=== PATIENT | female | born 1995 | race Caucasian/White ===

== ENCOUNTER 2016-11-27 12:33 | Emergency (ER) | payer MEDICAID, OTHER ==
[~2016-11-27] VITALS: Ht 170.2 cm; Wt 72.7 kg
[~2016-11-27 12:33] MED LIST: FLUO-1 OR; KETO10 PO; VENTAER INH; Z.0.BCPILL PO; ZOFR4TAB3 SL
[2016-11-27 12:35] VITALS: BP 122/80; PULSE 68; RESP 16; TEMP 98.6; O2SAT 99
--- NOTE | 2016-11-27 13:24 | PD ---
Physical Exam Time Seen by Provider: 13:21 Narrative 21 y/o estimates 6 weeks based on lmp 10/12. Here with vaginal bleeding intermittently which started 4 days ago. Endorses occasional "twinges of pain." Denies nausea, vomiting, fevers, chills, dysuria. VSS Seen at triage desk. Awaiting bed placement. Data Data Last Documented VS Vital Signs Date Time Temp Pulse Resp B/P Pulse Ox O2 Delivery O2 Flow Rate FiO2 11/27/16 12:35 98.6 68 16 122/80 99 Room Air [facility] Medical Record Reviewed: Yes Supervised Visit with DAWOOD: No Sharath Girard November 27, 2016 13:24
--- NOTE | 2016-11-27 14:14 | PD ---
HPI Chief Complaint: Traveling Crane Operator Problem/Complaint Time Seen by Provider: 14:07 Travel History International Travel<30 days: No Contact w/Intl Traveler<30days: No Traveled to known affect area: No History of Present Illness HPI The patient is a whose last menstrual cycle was October 12, 2016 who thinks she is approximate 6 weeks . The patient's first was a full- term vaginal delivery without complications. The patient thinks she is approximate 6 weeks , complains of 4 days of intermittent lower abdominal pain/cramping and vaginal bleeding. The patient describes the vaginal bleeding as bright, light, intermittent, and assisted with mild cramping and suprapubic pain. The patient denies any nausea, vomiting, or upper abdominal pain. She denies any associated dysuria or vaginal discharge. The patient states her blood type is O+. PFSH Past Medical History Asthma: Yes Depression: Yes Diminished Hearing: No Psychiatric: Yes (EMOTIONAL ISSUES) ?: LMP: 10/12/2016 Social History Alcohol Use: No Tobacco Use: No Substance Use: No Allergies-Medications (Allergen,Severity, Reaction): Coded Allergies: Onion (Verified Allergy, Intermediate, HIVES, 11/27/16) Reported Meds & Prescriptions Reported Meds & Active Scripts Active Ibuprofen 600 Mg Tab 600 Mg PO Q6H PRN Macrobid (Nitrofurantoin Monoh/Nitrofur Macro) 100 Mg Cap 100 Mg PO BID 10 Days Toradol (Ketorolac Tromethamine) 10 Mg Tab 10 Mg PO Q6-8HPRN 2 Days Zofran ODT (Ondansetron HCl) 4 Mg Tab 4 Mg SL Q6HPRN 2 Days FOR NAUSEA/VOMITING Ventolin Hfa (Albuterol Sulfate) 18 Gm Aero 2 Puff INH Q4HPRN * SHAKE WELL BEFORE USE * Reported Control Pills (Miscellaneous Medication) Tab 1 Tab PO DAILY Prozac (Fluoxetine HCl) 10 Mg Cap 10 Mg OR DAILY Review of Systems Except as stated in HPI: all other systems reviewed are Neg General / Constitutional: No: Fever HENT: No: Lightheadedness Cardiovascular: No: Chest Pain or Discomfort Respiratory: No: Shortness of Breath Gastrointestinal: No: Nausea, Vomiting, Abdominal Pain Genitourinary: Positive: Pelvic Pain, Vaginal Bleeding, No: Dysuria, Discharge Skin: No Rash Physical Exam Narrative GENERAL: Awake, alert, pleasant 21-year-old female who appears her stated age and is in no acute respiratory distress. SKIN: Focused skin assessment warm/dry. HEAD: Atraumatic. Normocephalic. EYES: No injection or drainage. ENT: No nasal bleeding or discharge. Mucous membranes pink and moist. NECK: Trachea midline. No JVD. CARDIOVASCULAR: Regular rate and rhythm. No murmur appreciated. RESPIRATORY: No accessory muscle use. Clear to auscultation. Breath sounds equal bilaterally. GASTROINTESTINAL: Abdomen soft, non-tender, nondistended. No rebound tenderness. Back: No CVA tenderness. Pelvic: The exam was performed in the presence of a female nurse. MUSCULOSKELETAL: No obvious deformities. No clubbing. No cyanosis. No edema. NEUROLOGICAL: Awake and alert. No obvious cranial nerve deficits. Motor grossly within normal limits. Normal speech. PSYCHIATRIC: Appropriate mood and affect; insight and judgment normal. Data Data Last Documented VS Vital Signs Date Time Temp Pulse Resp B/P Pulse Ox O2 Delivery O2 Flow Rate FiO2 11/27/16 12:35 98.6 68 16 122/80 99 Room Air Orders Beta Hcg (Quant/Titer) (11/27/16 14:07) Complete Blood Count With Diff (11/27/16 14:07) Complete Rh (11/27/16 14:07) Urinalysis - C+S If Indicated (11/27/16 14:07) Iv Access Insert/Monitor (11/27/16 14:07) Ed Urine Pregnancytest Poc (11/27/16 14:07) Sodium Chlor 0.9% 1000 Ml Inj (Ns 1000 M (11/27/16 14:15) Urine Culture (11/27/16 14:10) Labs Laboratory Tests Test 11/27/16 11/27/16 14:10 14:20 Urine Color RED Urine Turbidity HAZY Urine pH 7.0 Urine Specific Lorenzo 1.023 Urine Protein 30 mg/dL Urine Glucose (UA) NEG mg/dL Urine Ketones NEG mg/dL Urine Occult Blood LARGE Urine Nitrite NEG Urine Bilirubin NEG Urine Urobilinogen LESS THAN 2.0 MG/DL Urine Leukocyte Esterase TRACE Urine RBC /hpf Urine WBC 13 /hpf Urine Squamous Epithelial 3 /hpf Cells Urine Bacteria RARE /hpf Microscopic Urinalysis Comment CULTURE INDICATED White Blood Count 7.6 TH/MM3 Red Blood Count 4.51 MIL/MM3 Hemoglobin 11.0 GM/DL Hematocrit 33.8 % Mean Corpuscular Volume 75.0 FL Mean Corpuscular Hemoglobin 24.4 PG Mean Corpuscular Hemoglobin 32.6 % Concent Red Cell Distribution Width 15.7 % Platelet Count 315 TH/MM3 Mean Platelet Volume 8.3 FL Neutrophils (%) (Auto) 59.6 % Lymphocytes (%) (Auto) 32.8 % Monocytes (%) (Auto) 5.5 % Eosinophils (%) (Auto) 1.6 % Basophils (%) (Auto) 0.5 % Neutrophils # (Auto) 4.5 TH/MM3 Lymphocytes # (Auto) 2.5 TH/MM3 Monocytes # (Auto) 0.4 TH/MM3 Eosinophils # (Auto) 0.1 TH/MM3 Basophils # (Auto) 0.0 TH/MM3 CBC Comment AUTO DIFF Human Chorionic Gonadotropin, 8 MIU/ML Quant Blood Type O POSITIVE Rho(D) Type POSITIVE MDM Medical Decision Making Medical Screen Exam Complete: Yes Emergency Medical Condition: Yes Medical Record Reviewed: Yes Interpretation(s) Laboratory Tests Test 11/27/16 11/27/16 14:10 14:20 Urine Color RED Urine Turbidity HAZY Urine pH 7.0 Urine Specific Lorenzo 1.023 Urine Protein 30 mg/dL Urine Glucose (UA) NEG mg/dL Urine Ketones NEG mg/dL Urine Occult Blood LARGE Urine Nitrite NEG Urine Bilirubin NEG Urine Urobilinogen LESS THAN 2.0 MG/DL Urine Leukocyte Esterase TRACE Urine RBC /hpf Urine WBC 13 /hpf Urine Squamous Epithelial 3 /hpf Cells Urine Bacteria RARE /hpf Microscopic Urinalysis Comment CULTURE INDICATED White Blood Count 7.6 TH/MM3 Red Blood Count 4.51 MIL/MM3 Hemoglobin 11.0 GM/DL Hematocrit 33.8 % Mean Corpuscular Volume 75.0 FL Mean Corpuscular Hemoglobin 24.4 PG Mean Corpuscular Hemoglobin 32.6 % Concent Red Cell Distribution Width 15.7 % Platelet Count 315 TH/MM3 Mean Platelet Volume 8.3 FL Neutrophils (%) (Auto) 59.6 % Lymphocytes (%) (Auto) 32.8 % Monocytes (%) (Auto) 5.5 % Eosinophils (%) (Auto) 1.6 % Basophils (%) (Auto) 0.5 % Neutrophils # (Auto) 4.5 TH/MM3 Lymphocytes # (Auto) 2.5 TH/MM3 Monocytes # (Auto) 0.4 TH/MM3 Eosinophils # (Auto) 0.1 TH/MM3 Basophils # (Auto) 0.0 TH/MM3 CBC Comment AUTO DIFF Human Chorionic Gonadotropin, 8 MIU/ML Quant Blood Type O POSITIVE Rho(D) Type POSITIVE Differential Diagnosis Differential diagnosis includes threatened AB, incomplete AB, ectopic , normal , UTI. Narrative Course IV was established, labs are drawn and sent, and the patient was placed on cardiac telemetry monitoring and continuous pulse oximetry monitoring. Bedside UA test was obtained, negative. UA was sent to lab. Quantitative beta hCG and Rh were sent to lab. A pelvic exam was completed in the presence of a female nurse. Beta hCG, quantitative, was 8, most likely a falling beta hCG secondary to spontaneous . UA reveals innumerable RBCs consistent with blood, 13 wbc's, patient will be treated with Macrobid. Blood type is O+, therefore, no indication for RhoGAM. Pelvic examination reveals blood in the vaginal vault, cervix is closed, most likely complete/incomplete AB. The patient is advised to have a repeat beta hCG in 72 hours to ensure resolution, symptoms persist she may need to follow-up with her line supply for outpatient D&C. Patient agrees and understands. Diagnosis Primary Impression: Spontaneous Additional Impression: UTI (urinary tract infection) Qualified Code: N39.0 - Urinary tract infection with hematuria, site unspecified Patient Instructions: General Instructions Additional Instructions: Macrobid as directed. Repeat beta hCG in 72 hours. Follow-up with your cafeteria assistant. Ibuprofen as needed for pain. Return if symptoms worsen or progress. Please provide a patient a copy of her lab results at discharge. Med/Other Pt SpecificInfo: Prescription(s) given Scripts Ibuprofen 600 Mg [id number] Mg PO Q6H PRN (Pain/Inflammation) #20 TAB Ref 0 Prov:Marquise Tejada MD 11/27/16 Nitrofurantoin Monohydrate Macrocrystals (Macrobid)100 Mg [id number] Mg PO BID 10 Days Ref 0 Prov:Marquise Tejaad MD 11/27/16 Disposition: 01 DISCHARGE HOME Condition: Stable Marquise Tejada MD November 27, 2016 14:14
[2016-11-27] MEDS ORDERED: SODIUM CHLOR 0.9% 1000 ML INJ 1,000 ML IV ONE (14:15)
[2016-11-27 15:13] LABS: AUTOMATED NEUTROPHIL # 4.5 TH/MM3 (1.8-7.7); BASOPHIL % 0.5 % (0.0-2.0); EOSINOPHIL # 0.1 TH/MM3 (0-0.4); EOSINOPHIL % 1.6 % (0.0-4.0); HEMATOCRIT 33.8 % (35.0-46.0); LYMPH % 32.8 % (9.0-44.0); LYMPHOCYTE # 2.5 TH/MM3 (1.0-4.8); MEAN CORPUSCULAR HEMOGLOBIN 24.4 PG (27.0-34.0); MEAN CORPUSCULAR HGB CONC 32.6 % (32.0-36.0); MONO % 5.5 % (0.0-8.0); NEUT % 59.6 % (16.0-70.0); PLATELET COUNT 315 TH/MM3 (150-450); RED BLOOD COUNT 4.51 MIL/MM3 (4.00-5.30); RED CELL DISTRIBUTION WIDTH 15.7 % (11.6-17.2); WHITE BLOOD COUNT 7.6 TH/MM3 (4.0-11.0)
[2016-11-27 15:18] LABS: HEMO FLAGS AUTO DIFF
[2016-11-27 15:19] LABS: BACTERIA, URINE RARE /hpf; BLOOD, URINE LARGE (NEG); GLUCOSE,URINE NEG (NEG); KETONE, URINE NEG (NEG); NITRITE,URINE NEG (NEG); SQUAMOUS EPITHELIAL CELL URINE 3 /hpf (0-5); URINE COLOR RED (YELLW/STRAW)
[2016-11-27 15:20] LABS: COMMENT (UR) CULTURE INDICATED; CULTURE IF INDICATED CULTURE INDICATED
[2016-11-27 15:33] LABS: BETA HCG QUANT 8 MIU/ML (0-5)
[2016-11-27] MEDS ORDERED: MACR100C2 PO (15:58)
[2016-11-27] MEDS ORDERED: IBUP-232 PO (15:58)
[2016-11-27 16:46] LABS: OVALOCYTES 2+ (NORMAL)
[2016-11-27 16:47] LABS: TEARDROP RBCS 1+ (NORMAL)
[2016-11-27 16:48] LABS: PLATELET ESTIMATE SMEAR NORMAL (NORMAL); PLATELET MORPHOLOGY NORMAL (NORMAL); SCAN/DIFF AUTO DIFF CONFIRMED
== END 2016-11-27 18:59 | disposition home or self-care (01) ==
LOC: NEPD 12:33
DX: O03.9 Complete or unspecified spontaneous abortion without complication (principal); N39.0 Urinary tract infection, site not specified; Z87.09 Personal history of other diseases of the respiratory system; Z86.59 Personal history of other mental and behavioral disorders; Z3A.01 Less than 8 weeks gestation of pregnancy
CPT/HCPCS: 81001; 84702; 84703; 85025; 86901; 87086; 96360; 99284; J7030